=== PATIENT | female | born 1955 | race Caucasian/White ===

== ENCOUNTER 2017-08-25 14:29 | Outpatient (CLI) | payer BC ==
--- NOTE | 2017-08-25 16:46 | MMO ---
BILATERAL SCREENING MAMMOGRAM: Date: 08/25/17 COMPARISON: 12/11/15, 08/05/13, and 12/31/11. HISTORY: Screening mammography. FINDINGS: This patient's mammogram was interpreted with the assistance of computer-aided detection. Scattered fibroglandular densities are present. Benign calcification is noted on the left. There is no dominant mass, architectural distortion, or concerning calcifications seen. IMPRESSION: BIRADS 2: Benign Finding(s) Annual screening mammography recommended. POS: CHRISTOPH
== END 2017-08-25 14:30 | disposition home or self-care (01) ==
LOC: MAMMO 14:29
PROVIDERS: ATTEND Obstetrics & Gynecology
DX: Z12.31 Encounter for screening mammogram for malignant neoplasm of breast (principal)
CPT/HCPCS: 77067; G0202

== ENCOUNTER 2018-09-30 10:28 | Outpatient (CLI) | payer BC ==
--- NOTE | 2018-09-30 12:19 | BD ---
BONE DENSITOMETRY USING DEXA: Date: 09/30/18 HISTORY: Postmenopausal screening for osteoporosis. FINDINGS: Lumbar Spine: BMD (g/cm2) L1 0.710 T-Score: -2.5 Z-Score: -1.2 L2 0.723 T-Score: -2.8 Z-Score: -1.3 L3 1.771 T-Score: -2.8 Z-Score: -1.2 L4 0.717 T-Score: -3.1 Z-Score: -1.5 L1-L4 0.732 T-Score: -2.9 Z-Score: -1.3 Femoral Neck: 0.552 T-Score: -2.7 Z-Score: -1.3 Total Femur: 0.754 T-Score: -1.5 Z-Score: -0.5 There has been interval improvement of 0.4% in the bone mineral density of the lumbar spine and a red uction of 0.4% in the bone mineral density of the proximal femur since 12/11/15. IMPRESSION: Osteoporosis. POS: OFF
== END 2018-09-30 10:29 | disposition home or self-care (01) ==
LOC: BICMAMMO 10:28
PROVIDERS: ATTEND Obstetrics & Gynecology
DX: Z12.31 Encounter for screening mammogram for malignant neoplasm of breast (principal); Z13.820 Encounter for screening for osteoporosis; M81.0 Age-related osteoporosis without current pathological fracture
CPT/HCPCS: 77063; 77067; 77080

== ENCOUNTER 2019-12-07 09:32 | Outpatient (CLI) | payer BC ==
--- NOTE | 2019-12-07 11:05 | MMO ---
Bilateral MAMMO Bilat Screen [facility]. CLINICAL HISTORY: Patient is 64 years old and is seen for screening. The patient has the following family history of breast cancer: cousin female, at age 40, malignant (generic). The patient has no personal history of cancer. The patient has a history of left Excisional Biopsy in 2005 - benign and right Excisional Biopsy in 1997 - benign. VIEWS: The views performed were: bilateral craniocaudal with tomosynthesis and bilateral mediolateral oblique with tomosynthesis. FILMS COMPARED: The present examination has been compared to prior imaging studies performed at [facility] on 08/05/2013, and at [facility] on 12/11/2015, 08/25/2017 and 09/30/2018. This study has been interpreted with the assistance of computer-aided detection. MAMMOGRAM FINDINGS: The breasts are heterogeneously dense, which could obscure a lesion on mammography. There are stable benign appearing calcifications seen in both breasts. There are no suspicious masses, suspicious calcifications, or new areas of architectural distortion. IMPRESSION: THERE IS NO MAMMOGRAPHIC EVIDENCE OF MALIGNANCY. A ROUTINE FOLLOW-UP MAMMOGRAM IN 1 YEAR IS RECOMMENDED. THE RESULTS OF THIS EXAM WERE SENT TO THE PATIENT. ACR BI-RADS Category 2 - Benign finding MAMMOGRAPHY NOTE: 1. A negative mammogram report should not delay a biopsy if a dominant of clinically suspicious mass is present. 2. Approximately 10% to 15% of breast cancers are not detected by mammography. 3. Adenosis and dense breasts may obscure an underlying neoplasm. Reported by: FRANCISCO J ERIC MD Electonically Signed: [id number]
== END 2019-12-07 09:33 | disposition home or self-care (01) ==
LOC: BICMAMMO 09:32
PROVIDERS: ATTEND Obstetrics & Gynecology
DX: Z12.31 Encounter for screening mammogram for malignant neoplasm of breast (principal); Z80.3 Family history of malignant neoplasm of breast; Z91.89 Other specified personal risk factors, not elsewhere classified
CPT/HCPCS: 77063; 77067